=== PATIENT | female | born 1960 | race Caucasian/White ===

== ENCOUNTER 2018-07-14 09:25 | Inpatient (IN) ==
[2018-07-14] MEDS ORDERED: ISOVUE-370 200 ML INFUS..BTL IV ONE ×2 (09:29→10:53)
[2018-07-14] MEDS ORDERED: *HR* Heparin 10,000 UNIT/10 ML VIAL ONE (09:29)
[2018-07-14] MEDS ORDERED: Nitroglycerin 1,000 MCG/10 ML VIAL IV ONE (09:29)
[2018-07-14] MEDS ORDERED: Heparin 1,000 UNITS/500 mL 500 ML ONE (09:29)
[2018-07-14] MEDS ORDERED: 0.9 % Sodium Chloride 1,000 ML ONE ×3 (09:29→13:46)
[2018-07-14] MEDS ORDERED: *HR* FentaNYL (PF) 100 MCG/2 ML VIAL ONE (10:36)
[2018-07-14] MEDS ORDERED: *HR* Midazolam HCl 2 MG/2 ML VIAL ONE (10:37)
[2018-07-14] MEDS ORDERED: *HR* Bivalirudin 250 MG VIAL IVC ONE (10:42)
--- NOTE | 2018-07-14 11:33 | Invasive Diagnostic Lab Proc ---
Name: Kayce Carballo Date of Study: 07/14/2018 Date: 1960 Ht: 62.0in Medical Record#: [id number] Age: 58 Wt: 238.10lb Gender: Female BSA: 2.06 Order #: [id number] BMI: 43.54 Physicians Procedure Physician: Paris Sullivan MD, FACC Referring MD: Referring MD: Staff Name Position Time In Izabel Pacheco RT Scrub 10:32 AM Rafael Conte RN General Engineering Teacher 10:32 AM Javed Denton RN Monitor 10:32 AM Elodia Zamudio RT (R) Monitor 10:37 AM Claudette Barlow RN General Engineering Teacher 10:37 AM Indications Indication STEMI Procedures Performed Procedure PRQ CARD REVASC NJ 1 VSL L HRT ARTERY/VENTRICLE ANGIO PRQ CARD ROSALVA STENT W/ANGIO 1 VSL Pre-Procedure Checklist Informed consent is complete signed and on chart. H&P is on chart. ID band is on and ID verified with patient. Patient NPO for procedure The procedure was described for the patient and questions were answered. Blood Pressure: 162/85 ECG is on chart. Rhythm: NSR Plan of Care Patient will tolerate the procedure without complications. Adequate level of comfort will be maintained. Hemodynamics will remain stable Patient will recover from procedure without complications. Respiratory function will be maintained. Cardiac rhythm will remain stable. Patient temperature will be maintained. Patient and/or family have verbalized understanding of the procedure. Patient Education Chief Complaint/Reason for Test: Cardiac Cath Developmental Category: Adult (18-64 years) Developmentally Appropriate for Age: Yes Learning Barriers: None Education Needs: Procedure Education Method: Verbal Information Taught: Cardiac Cath Educational Evaluation: Able to repeat information Intravenous Access Time IV Size Location DC'd Fluid/Drip Rate Units RN 18g 1 1/" Patent On Arrival Lt Arm 0.9NaCl 50 ml/hr Claudette Barlow RN 22g 1" Patent On Arrival Lt Hand Allergies codeine acetaminophen lisinopril hydrocodone Vital Signs Time BP (mmHg) HR (bpm) O2 Sat. RR (bpm) LOC 10:35 AM 145 / 86 130 98 % 16 10:40 AM 147 / 90 65 100 % 14 10:45 AM 159 / 84 67 97 % 38 10:50 AM 132 / 67 70 95 % 28 10:55 AM 122 / 64 72 98 % 13 11:00 AM 134 / 72 84 98 % 14 11:05 AM 130 / 81 55 98 % 14 11:10 AM 135 / 82 72 98 % 10 Procedural Medications Time Medication Dose Units Method Given By 10:38 AM Oxygen 2 L/min nasal cannula Claudette Barlow RN 10:38 AM Versed 2 mg Intravenous Claudette Barlow RN 10:38 AM Fentanyl 50 mcg Intravenous Claudette Barlow RN 10:39 AM Lidocaine 2% 20 ml Subcutaneous Paris Sullivan MD, FAC 10:44 AM Angiomax 0.75mg/kg bolus: 16.5 ml Intravenous Claudette Barlow RN 10:44 AM Angiomax 1.75mg/kg/hr: 38.5 ml Intravenous Claudette Barlow RN 10:47 AM Nitroglycerin 200 mcg Intracoronary Paris Sullivan MD, FAC 10:50 AM Nitroglycerin 200 mcg Intracoronary Paris Sullivan MD, FACC 11:05 AM Nitroglycerin 200 mcg Intracoronary Paris Sullivan MD, [facility] ASA Classification: Emergent Procedure: ASA score is assumed Irina Score Preprocedure Postprocedure Activity 2- Moves 4 extremities sustained head lift Activity 2- Moves 4 extremities sustained head lift Circulation 2- SBP +/= 20 points of pre-anesthetic level Circulation 2- SBP +/= 20 points of pre-anesthetic level Consciousness 2- Awake and alert oriented x 3 Consciousness 2- Awake and alert oriented x 3 O2 Saturation 2- Able to maintain O2 satruation of 92% on room air O2 Saturation 2- Able to maintain O2 satruation of 92% on room air Respiratory 2- Able to deep breathe and cough well Respiratory 2- Able to deep breathe and cough well Total Score 10 Total Score 10 Contrast Agent: Isovue Diagnostic Contrast: 194 ml Total Contrast: 194 ml Fluoro Dose: 99682 mGy Procedure Log Time Note Enter By 10:10 AM CathStat 10:15 AM asa,brilinta and heparin given at [facility] scoates 10:32 AM Pt arrived to laborer [facility] 2 at 10:32 ejohnson 10:32 AM Heparin turned off ejohnson 10:34 AM [ Start or Stop Vital ] 10:34 AM Vitals capture started with the following parameters, Patient=Adult, Interval=5 min, Initial Mqavoijk=563 mmHg, Deflation Rate=5 mmHg, Cuff placed on Right Arm 10:35 AM Physician arrived 10:35 ejohnson 10:35 AM CY=094 bpm, ARBT=185/86 mmhg, SpO2=98.0 %, Resp=16 B/min 10:35 AM Izabel Pacheco RT Position: Scrub Time in: 10:32 ejohnson 10:35 AM Rafael Conte RN Position: General Engineering Teacher Time in: 10:32 ejohnson 10:35 AM Javed Denton RN Position: Monitor Time in: 10:32 ejohnson 10:36 AM Patient charges- Angio tray pack, Navilyst 3mm J, Pulse Oximetry and ACIST tubing and transducer ejohnson 10:36 AM Recorded ECG: HR=68 Condition=Condition 1 10:37 AM Elodia Zamudio RT (R) Position: Monitor Time in: 10:37 tsites 10:37 AM Claudette Barlow RN Position: General Engineering Teacher Time in: 10:37 tsites 10:37 AM Case Delayed No tsites 10:37 AM Physician arrived 10:37 tsites 10:38 AM Procedure start 10:38 tsites 10:38 AM Time out was performed according to hospital policy. Conscious sedation and anesthesia was achieved (see medication log with in this report above) tsites 10:38 AM Critical cardiac patient with acute NJ was brought emergently to the cardiac laboratory technician for immediate coronary angiography and intervention if clinically indicated. tsites 10:38 AM Clinical Presentation: STEMI or equivalent tsites 10:38 AM Time: 10:38 Oxygen on at 2 L/min per nasal cannula by Claudette Barlow RN tsites 10:38 AM Time: 10:38 Versed 2 mg Intravenous Given by Claudette Barlow RN tsites 10:38 AM Time: 10:38 Fentanyl 50 mcg Intravenous Given by Claudette Barlow RN tsites 10:39 AM Hair removed from procedure site in holding area using clippers. Bilateral groin prepped with Chloraprep by Claudette Barlow RN, then patient was draped. Skin intact. tsites 10:39 AM Time: 10:39 20 ml Lidocaine 2% to right groin Subcutaneous Given by Paris Sullivan MD, [facility] tsites 10:39 AM Pressure channel 1 zeroed. 10:40 AM HR=65 bpm, VQBL=903/90 mmhg, PfL9=330.0 %, Resp=14 B/min 10:40 AM Access obtained by percutaneous puncture. 6Fr 10cm Terumo Bruno sheath placed in right Femoral artery. [id number] tsites 10:40 AM 5Fr FL 4 catheter inserted over the wire [facility] tsites 10:40 AM 0.035 145cm Navilyst 3mmJ wire [id number] tsites 10:41 AM LCA angiography performed in multiple views. tsites 10:41 AM Recorded Pressure: Ao, HR=74, Condition=Condition 1 (Aorta) Ao 205/48/110 10:42 AM Lesion found in Mid Circumflex. Pre Stenosis: 100 Pre HATTIE Flow: 0: No Flow/No perfusion tsites 10:42 AM Circumflex, Obtuse Marginal, Left Posterior Descending, and Left Posterolateral Coronary Arteries with 100 % stenosis. If graft is supplying this area, 0 % stenosis tsites 10:42 AM wire reinserted catheter removed tsites 10:43 AM PCI Status Emergency tsites 10:43 AM PCI lesion in Mid Circumflex. tsites 10:43 AM 6Fr XB LAD 3.5 Avon Bright-Tip guide catheter was used to cannulate the PCI vessel successfully. reused? No tsites 10:43 AM .014 Prowater 182cm guide wire across target lesion- successful. reused? No tsites 10:43 AM Inflation device was opened. tsites 10:44 AM Time: 10:44 Angiomax 0.75mg/kg bolus: 16.5 ml Intravenous Given by Claudette Barlow RN Young pump tsites 10:45 AM Time: 10:44 Angiomax 1.75mg/kg/hr: 38.5 ml Intravenous Given by Claudette Barlow RN Young pump tsites 10:45 AM HR=67 bpm, QYUG=255/84 mmhg, SpO2=97.0 %, Resp=38 B/min 10:45 AM Recorded Pressure: Ao, HR=68, Condition=Condition 1 (Aorta) Ao 169/74/119 10:45 AM 2.5 mm x 12 mm Emerge Monorail balloon across target lesion- successful. reused? No tsites 10:45 AM Balloon inflated @ 10 ken for 20 seconds tsites 10:47 AM Balloon catheter removed intact. tsites 10:47 AM Recorded Pressure: Ao, HR=90, Condition=Condition 1 (Aorta) Ao ?/?/? 10:48 AM Time: 10:47 Nitroglycerin 200 mcg Intracoronary Given by Paris Sullivan MD, [facility] tsites 10:49 AM 3.0mm x 20mm Synergy drug-eluting stent across target lesion- successful Lot #[id number] tsites 10:50 AM Stent deployed @ 12 ken for 30 seconds tsites 10:50 AM Recorded Pressure: Ao, HR=71, Condition=Condition 1 (Aorta) Ao 112/77/92 10:50 AM HR=70 bpm, HOWD=028/67 mmhg, SpO2=95 %, Resp=28 B/min 10:50 AM Stent delivery system removed intact. tsites 10:51 AM Time: 10:50 Nitroglycerin 200 mcg Intracoronary Given by Paris Sullivan MD, [facility] tsites 10:53 AM Guide wire removed intact. tsites 10:53 AM Guide catheter removed intact. tsites 10:53 AM 5Fr FR 4 catheter inserted over the wire [facility] tsites 10:54 AM RCA angiography performed in multiple views. tsites 10:54 AM Recorded Pressure: Ao, HR=70, Condition=Condition 1 (Aorta) Ao 109/79/93 10:55 AM HR=72 bpm, TWCR=381/64 mmhg, SpO2=98 %, Resp=13 B/min 10:56 AM Lesion found in Mid RCA. Pre Stenosis: 80 Pre HATTIE Flow: 3: Complete and Brisk Flow/Perfusion tsites 10:57 AM Pressure channel 1 zero failed. 10:57 AM Pressure channel 1 zeroed. 10:57 AM Recorded Pressure: LV, HR=74, Condition=Condition 1 (Left Ventricle) LV 132/0/21 10:57 AM Recorded Pressure: LV, Ao, HR=74, Condition=Condition 1 (Left Ventricle) LV 101/30/33, (Aorta) Ao 108/71/89 10:57 AM 5Fr Pigtail catheter inserted over the wire [facility] tsites 10:57 AM Catheter crossed the aortic valve and was selectively placed in the left ventricle. Pressures recorded on pullback for left heart catheterization. tsites 10:57 AM Bolus angiogram of left Ventricle complete: 8 ml/sec for a total of 24 mls tsites 10:58 AM wire reinserted catheter removed tsites 10:58 AM 6Fr JR 4 Avon Bright-Tip guide catheter was used to cannulate the PCI vessel successfully. reused? No tsites 10:58 AM .014 Prowater 180cm guide wire across target lesion- successful. reused? No tsites 11:00 AM HR=84 bpm, GGKT=951/72 mmhg, SpO2=98.0 %, Resp=14 B/min 11:00 AM Recorded Pressure: Ao, HR=77, Condition=Condition 1 (Aorta) Ao 106/49/70 11:01 AM 2.5mm x 16mm Synergy drug-eluting stent across target lesion- successful Lot #[id number] tsites 11:03 AM Stent deployed @ 14 ken for 30 seconds tsites 11:04 AM Stent balloon reinflated @ 18 ken for 12 seconds tsites 11:04 AM Recorded Pressure: Ao, HR=66, Condition=Condition 1 (Aorta) Ao 111/35/81 11:04 AM Stent delivery system removed intact. tsites 11:05 AM HR=55 bpm, LDNK=767/81 mmhg, SpO2=98.0 %, Resp=14 B/min 11:05 AM Time: 11:05 Nitroglycerin 200 mcg Intracoronary Given by Paris Sullivan MD, FACC tsites 11:07 AM wire reinserted catheter removed tsites 11:08 AM Bolus angiogram of right Femoral complete: 2 ml/sec for a total of 4 mls tsites 11:09 AM Procedure completed at 11:09 07/14/2018 tsites 11:09 AM Sign out completed: Radiation Dose 968 mGy, 34728 cGy/cm2 Fluoro Time: 8.5 Isovue 370 - 200ml contrast 194 ml given by Paris Sullivan MD, FACC. Complications: None. The patient was discharged out of the laboratory technician in stable condition. Cardiac Rehab Consult needed: YesConfirmed administered medications: Yes tsites 11:10 AM Isovue 370 - 200ml,1 Bottle(s) used. tsites 11:10 AM Sheath left in place to be pulled on floor/holding areaV+Pad tsites 11:10 AM HR=72 bpm, ZAOR=372/82 mmhg, SpO2=98 %, Resp=10 B/min 11:12 AM Estimated Blood Loss: less than 20cc tsites 11:12 AM Did you address HATTIE flow and Dominance? Yes tsites 11:12 AM Coronary Dominance: right tsites 11:12 AM Lesion found in Proximal RCA. Pre Stenosis: 30 Pre HATTIE Flow: tsites 11:13 AM Lesion found in Distal RCA. Pre Stenosis: 40 Pre HATTIE Flow: tsites 11:13 AM Lesion found in Distal LMCA. Pre Stenosis: 20 Pre HATTIE Flow: tsites 11:13 AM Lesion found in Proximal LAD. Pre Stenosis: 50 Pre HATTIE Flow: tsites 11:13 AM Lesion found in Mid LAD. Pre Stenosis: 30 Pre HATTIE Flow: tsites 11:13 AM Lesion found in Proximal Circumflex. Pre Stenosis: 40 Pre HATTIE Flow: tsites 11:14 AM Left Main Coronary Artery with 20% stenosis tsites 11:14 AM Proximal Left Anterior Descending Coronary Artery with 50% stenosis. If graft is supplying this territory, 0 % stenosis. tsites 11:14 AM Mid/Distal Left Anterior Descending Coronary Artery and diagonal branches with 30% stenosis. If graft is supplying this area, 0 % stenosis tsites 11:14 AM Circumflex, Obtuse Marginal, Left Posterior Descending, and Left Posterolateral Coronary Arteries with 100 % stenosis. If graft is supplying this area, 0 % stenosis tsites 11:14 AM Right Coronary, Right Posterior Descending Arteries with Right Posterolateral and Acute Marginal branches with 80 % stenosis. If graft is supplying this area, 0 % stenosis tsites 11:14 AM Post ECG NSR tsites 11:16 AM Post Blood Pressure 135/82 tsites 11:16 AM 11:16 Post Pulses Bilateral DP & PT 2+ tsites 11:16 AM Information taught Cardiac Cath and PCI tsites 11:17 AM Education needs Procedure, Plan of Care, and Responsibilities of Patient in Care tsites 11:17 AM Learning barriers :None tsites 11:17 AM Education Methods Verbal tsites 11:17 AM Education evaluation Able to repeat information tsites 11:17 AM Site status No bleeding/hematoma - Rt Groin as reported by Izabel Pacheco RT at 11:17 tsites 11:17 AM Opsite applied tsites 11:17 AM angiomax dc'd tsites 11:18 AM Report given to claudia CRANE Pt taken to ICU Room #10. 11:17 tsites 11:18 AM Plavix, Effient or Brilinta given Yes [facility] tsites 11:18 AM Delay to floor No tsites 11:18 AM Patient out of room: 11:18 tsites 11:18 AM Family placed in consult room. tsites Complications Complication None Hemodynamics Pressures Site Systolic/A Wave Diastolic/V Wave Mean AO 205 48 110 AO 169 74 119 AO AO 112 77 92 AO 109 79 93 LV 132 0 21 LV 101 30 33 AO 108 71 89 AO 106 49 70 AO 111 35 81 Post Procedure Information Blood Pressure: 135/82 mmHg Rhythm: NSR Post procedural instructions were given Closure Device Time Device Success/Fail 07/14/2018 11:20:00 AM Manual Compression Successful Site Checks Time Location Status Staff Sheath In? Note 11:17 AM Rt Groin No bleeding/hematoma Izabel Pacheco RT Pulses Time Site Pre-Procedure Post-Procedure Note Bilateral DP & PT 2+ 11:16:00 AM Bilateral DP & PT 2+ Updated by Elodia Zamudio RT (R) on 07/14/2018 11:23:54 AM Elodia Zamudio RT electronically signed on 07/14/2018 11:24:31 AM with status of Final
[2018-07-14] MEDS ORDERED: Nitroglycerin 0.4 MG TAB.SUBL SL PRN (11:43)
--- NOTE | 2018-07-14 12:05 | Cardiology History & Physical ---
Date of Encounter: 07/14/18 Time of Encounter: 11:00 Assessment and Plan (1) ST elevation myocardial infarction (STEMI) Current Visit: No Status: Acute Acute CA from [place] ED. She underwent emergent LHC and received PCI to her mLCx artery (culprit) and RCA. There was mild to moderate disease remaining in the LAD. She is now pain free. Asa, plavix, statin, and bb. Check TTE. Serial EKG. Reports inability to obtain meds due to cost. cattle alley worker consulted. Qualifiers: Involved coronary artery: left circumflex coronary artery Qualified Code(s) : I21.21 - ST elevation (STEMI) myocardial infarction involving left circumflex coronary artery (2) HTN (hypertension) Current Visit: No Status: Chronic Restart home meds. Qualifiers: Hypertension type: essential hypertension Qualified Code(s): I10 - Essential (primary) hypertension (3) HLD (hyperlipidemia) Current Visit: No Status: Chronic The assessment and plan as outlined above was discussed with the patient and/or family members who expressed understanding and agreement. All questions were answered. Continue statin. Qualifiers: Hyperlipidemia type: pure hypercholesterolemia Qualified Code(s): E78.00 - Pure hypercholesterolemia, unspecified; E78.0 - Pure hypercholesterolemia (4) Celiac disease Current Visit: No Status: Chronic The assessment and plan as outlined above was discussed with the patient and/or family members who expressed understanding and agreement. All questions were answered. H/o celiac disease. Reports recent inability to take meds and broke out in blisters. She was given steroid shot recently and is back on medications. cattle alley worker consult for financial assistance. (5) Diabetes 1.5, managed as type 2 Current Visit: No Status: Chronic The assessment and plan as outlined above was discussed with the patient and/or family members who expressed understanding and agreement. All questions were answered. Restart home meds. WIll add SSI if indicated. (6) Obesity Current Visit: Yes Status: Acute The assessment and plan as outlined above was discussed with the patient and/or family members who expressed understanding and agreement. All questions were answered. Qualifiers: Obesity type: unspecified obesity type Serious obesity comorbidity presence : with serious comorbidity Body mass index: BMI 40.0-44.9 Qualified Code(s) : E66.01 - Morbid (severe) obesity due to excess calories; Z68.41 - Body mass index (BMI) 40.0-44.9, adult History of Present Illness Chief complaint: chest pain HPI: Ms. Carballo is a 58 year old female with past medical history of HTN, HLD, DM, and celiac disease who presented to [facility] ED with the c/o severe chest pain starting at 0630 this morning. C/o intermittent chest discomfort, SOB, diaphoresis, and nausea for two days. Symptoms increased with activity. This morning the pain woke her from her sleep. While in the ED her initial EKG showed no significant ST changes. She had recurrent chest pain and re-peat EKG showed inferior and anteriolateral ST elevation. She was transfered to [facility] for emergent LHC. Past Med Surg Social Fam HX - Past Medical History Medical history: hyperlipidemia, hypertension, other (celiac disease, elevated BMI, borderline DM) Psychiatric history: no psych history - Past Surgical History Surgical History: cholecystectomy - Social History Smoking Status: Current every day smoker Smokeless Tobacco Status: No Alcohol use: none Drug use: none Medications and Allergies Aspirin Enteric Coated [Aspirin EC] 81 mg PO DAILY 06/14/15 [History] Fenofibrate [Tricor] 54 mg PO DAILY 06/14/15 [History] HydrOXYzine 25 mg PO TID 06/14/15 [History] Metoprolol [Lopressor] 50 mg PO BID 06/14/15 [History] Omeprazole [Prilosec] 40 mg PO DAILY 06/14/15 [History] hydroCHLOROthiazide [Hydrochlorothiazide] 50 mg PO DAILY 06/14/15 [History] Dapsone 100 mg PO DAILY 07/14/18 [History] FLUoxetine HCl [PROzac] 20 mg PO DAILY 07/14/18 [History] 3 Allergy/AdvReac Type Severity Reaction Status Date / Time acetaminophen Allergy Vomiting Verified 07/14/18 08:42 codeine Allergy Vomiting Verified 07/14/18 08:42 hydrocodone Allergy Anxiety Verified 07/14/18 08:42 lisinopril Allergy Cough Verified 07/14/18 08:42 All Systems Review: The remainder of the systems were reviewed and are negative Physical Examination Vital Signs, Last 4 Hours Temp Pulse Resp BP Pulse Ox 07/14/18 11:44 73 97 137/85 07/14/18 11:28 97.8 F 76 13 140/81 97 General: Conversant, No Apparent Distress HEENT: Atraumatic, Normocephaly, Mucus Membranes Moist Neck: No JVD, Normal carotid pulses Cardiac: Reg Rate and Rhythm, Normal S1 and S2, No Murmur Lungs: Normal Breath Sounds, Other (Respirations easy, mild wheezing noted ) Neuro: Alert and responsive, No focal deficits noted Abdomen: Soft, Non-Tender Skin: Other (Multiple scabbed areas on arms noted) Musculoskeletal: No Chest Wall Tenderness Extremities: No Clubbing, No Cyanosis, No Edema, Normal Pulses Results - Imaging and Cardiology Cardiac cath: report reviewed - EKG Interpretation EKG results cardiology: personally reviewed - VTE Reasons for not Prescribing Prophylaxis: Not indicated-Anticoagulated or INR therapeutic
[2018-07-14 12:34] LABS: Estimated Average Glucose 100 mg/dl; Hemoglobin A1C 5.1 %
[2018-07-14] MEDS ORDERED: *HR* Atropine Sulfate 1 MG/10 ML SYRINGE ONE (13:46)
[2018-07-14] MEDS: Nicotine 21 MG PATCH.TD24 TD SCH (19:56)
[2018-07-14] MEDS ORDERED: Perflutren Lipid Microsphere 1.3 ML in 0.9 % Sodium Chloride 8.7 ML IVP ONE (21:11)
[2018-07-15 04:14] LABS: Basophils % 0.4 %; Eosinophils # 0.2 K/mcL (0.0-0.6); Eosinophils % 1.8 %; Hematocrit 37.8 % (35.3-44.9); Hemoglobin 11.9 g/dL (11.5-15.4); Immature Granulocytes % 0.8 % (0-4); Lymphocytes # 3.1 K/mcL (0.6-4.6); Mean Corpuscular HGB Conc 31.5 g/dL (31.6-35.5); Mean Corpuscular Hemoglobin 28.3 pg (28.0-33.3); Mean Corpuscular Volume 89.8 fL (83.0-100.0); Mean Platelet Volume 10.8 fL (9.4-12.4); Monocytes # 0.9 K/mcL (0.0-1.3); Monocytes % 9.3 %; Neutrophils # 4.9 K/mcL (1.6-8.9); Platelet Count 196 K/mcL (140-400); Red Blood Count 4.21 M/mcL (3.82-4.97); Red Cell Distribution Width 14.3 % (11.5-14.5); Segmented Neutrophils % 53.7 %
[2018-07-15 04:36] LABS: BUN/Creatinine Ratio 28 (6-26); Blood Urea Nitrogen 15 mg/dL (6-20); Calcium 9.2 mg/dL (8.6-10.3); Carbon Dioxide 26 mEq/L (23-29); Chloride 106 mEq/L (98-107); Chol/HDL Ratio 5.8 (0-4.9); Cholesterol 161 mg/dL (< 200); Glucose 120 mg/dL (70-105); HDL Cholesterol 28 mg/dL (40-59); LDL Cholesterol,Calculated 96 mg/dL (0-99); Osmolality,Calculated 294 (280-300); Potassium 4.2 mEq/L (3.5-5.1); Sodium 141 mEq/L (136-145); Triglycerides 186 mg/dL (< 150); eGFR For Non-African Americans > 60 (> 60)
[2018-07-15 04:37] LABS: Troponin I 17.78 ng/mL (< 0.04)
[2018-07-15] MEDS ORDERED: Aspirin 81 MG TAB.CHEW PO SCH (09:00)
--- NOTE | 2018-07-15 09:21 | Electrocardiograph Report ---
Echo with Imaging Enhancement Agent Name: Kayce Carballo Date of Study: 07/14/2018 Date: 1960 Ht: 62.0 in Medical Record#: [id number] Age: 58 Wt: 229.0 lb Gender: Female BSA: 2.02 Order #: [id number] Location: [facility] Room #: ICU10 Reading Physician:Merrill Ch DO, [facility], YUNIOR MATTSON Ordering Physician:Paris Sullivan MD, [facility] Technical Services Manager: Olga Lidia Mendoza Indications: Acute Coronary Syndrome Impressions: LVEF 55%. Normal LV chamber size, wall thickness and overall function. Mild segmental left ventricular systolic dysfunction. Mild left ventricular diastolic dysfunction. Normal right ventricular structure and function. Unable to estimate RVSP due to lack of TR jet. No significant valvular dysfunction. Left Ventricular Wall Motion: Rest Echo Findings The mid inferior lateral and basal inferior lateral de jesus were hypokinetic. All other wall segments showed normal motion. Findings: Study Quality * Technically adequate exam. ECG Findings * Normal sinus rhythm. Left Ventricle * LVEF 55%. * Normal LV chamber size, wall thickness and overall function. * Mild segmental left ventricular systolic dysfunction. * Mild left ventricular diastolic dysfunction. Right Ventricle * Normal right ventricular structure and function. Left Atrium * Mildly dilated left atrium. Right Atrium * Normal right atrial size. Aortic Valve * Aortic valve not well visualized. * No aortic regurgitation. * No aortic stenosis. Mitral Valve * Normal mitral valve structure and function. * No mitral stenosis. * No mitral regurgitation. Tricuspid Valve * Normal tricuspid valve structure and function. * No tricuspid regurgitation. * Unable to estimate RVSP due to lack of TR jet. Pulmonic Valve * Normal pulmonic valve structure and function. * Trace pulmonic regurgitation. Pericardium * The pericardium appears normal. IVC * Normal IVC dimensions and inspiratory collapse. Pulmonary Artery * Normal visualized portions of the main pulmonary artery. History Hypertension Hypercholesteremia Contrast: Definity 1.3 ml in 8.7 ml of saline 3 ml. Measurements: BP: 128/ 65 2D Normal Values RVIDd: 2.73 cm <2.7 cm IVSd: 1.09 cm 0.6 - 1.0 cm LVIDd: 5.00 cm 3.7 - 5.6 cm LVPWd: 1.05 cm 0.6 - 1.1 cm LVIDs: 3.29 cm 1.5 - 3.6 cm AO: 2.00 cm < 4.0 cm LA: 3.60 cm 2.0 - 4.0cm %FS: 34.20 cm >25 % LVOT Diam: 2.00 cm LA volume: 52.7 Mitral Valve Pressure Time:52.00 msec Valve Area:4.23 cm2 Peak E:1.01 m/sec Peak A:.95 m/sec E/A Ratio:1.1 Peak E' Lat Herman:7.72 cm/s Peak E' Med Herman:7.07 cm/s E/E' Lat Ratio:13.1 E/E' Med Ratio:14.3 LVOT Peak Herman:1.17 m/sec Mean Herman:.73 m/sec Peak Grad:5.00 mmHg Mean Grad:2.00 mmHg Updated by Merrill Ch DO, [place], SRINIVASAN, YUNIOR on 07/15/2018 9:13:58 AM electronically signed on 07/15/2018 9:14:49 AM with status of Final Wall Motion Dixon: 1=Normal, 2=Hypokinesis, 3=Akinesis, 4=Dyskinesis, 5=Aneurysmal, 6=Hyperkinetic, X=Not Visualized (Blank)=Missing
[2018-07-15] MEDS: Nicotine 21 MG PATCH.TD24 TD SCH (09:34)
--- NOTE | 2018-07-15 10:58 | Cardiology Progress Note ---
Date of Encounter: 07/15/18 Time of Encounter: 10:50 Assessment and Plan (1) ST elevation myocardial infarction (STEMI) Current Visit: No Status: Acute Acute [place] from [place] [facility]. She underwent emergent LHC and received PCI with ROSALVA to her mLCx artery (culprit) and 80% stenosis in RCA. There was 40-50% stenosis remaining in the LAD. She is now pain free. Asa, plavix, statin, and bb. Importance of DAPT uninterrupted for min one year reviewed and she voiced understanding. TTE pending. Serial EKG shows improvement. Reports inability to obtain meds due to cost. mechanical maintenance worker consulted. Step down to floor today. Qualifiers: Involved coronary artery: left circumflex coronary artery Qualified Code(s) : I21.21 - ST elevation (STEMI) myocardial infarction involving left circumflex coronary artery (2) HTN (hypertension) Current Visit: No Status: Chronic B/p acceptable. Qualifiers: Hypertension type: essential hypertension Qualified Code(s): I10 - Essential (primary) hypertension (3) HLD (hyperlipidemia) Current Visit: No Status: Chronic The assessment and plan as outlined above was discussed with the patient and/or family members who expressed understanding and agreement. All questions were answered. Continue statin. Qualifiers: Hyperlipidemia type: pure hypercholesterolemia Qualified Code(s): E78.00 - Pure hypercholesterolemia, unspecified; E78.0 - Pure hypercholesterolemia (4) Celiac disease Current Visit: No Status: Chronic The assessment and plan as outlined above was discussed with the patient and/or family members who expressed understanding and agreement. All questions were answered. H/o celiac disease. Reports recent inability to take meds and broke out in blisters. She was given steroid shot recently and is back on medications. mechanical maintenance worker consult for financial assistance. (5) Diabetes 1.5, managed as type 2 Current Visit: No Status: Chronic The assessment and plan as outlined above was discussed with the patient and/or family members who expressed understanding and agreement. All questions were answered. History of borderline DM. Not on medication currently. Continue to monitor. (6) Obesity Current Visit: Yes Status: Acute The assessment and plan as outlined above was discussed with the patient and/or family members who expressed understanding and agreement. All questions were answered. Healthy heart diet and exercise reviewed. Qualifiers: Obesity type: unspecified obesity type Serious obesity comorbidity presence : with serious comorbidity Body mass index: BMI 40.0-44.9 Qualified Code(s) : E66.01 - Morbid (severe) obesity due to excess calories; Z68.41 - Body mass index (BMI) 40.0-44.9, adult Discussion w patient/family: The assessment and plan as outlined above was discussed with the patient and/or family members who expressed understanding and agreement. All questions were answered. Thank you for involving us in the care of your patient. Please call with any questions. Subjective Principal diagnosis: STEMI Interval history: No events overnight. Denies chest pain. Objective Vital Signs, Last 4 Hours Temp Pulse Resp BP Pulse Ox 07/15/18 10:00 69 14 128/72 97 07/15/18 09:00 72 18 97 07/15/18 08:10 97.7 F 07/15/18 08:00 78 18 121/71 97 07/15/18 07:00 70 18 97 General: Conversant, No Apparent Distress HEENT: Atraumatic, Normocephaly, Mucus Membranes Moist Neck: No JVD, Normal carotid pulses Cardiac: Reg Rate and Rhythm, Normal S1 and S2, No Murmur Lungs: Normal Breath Sounds, No Wheeze, Rales, Rhonchi Neuro: Alert and responsive, No focal deficits noted Abdomen: Soft, Non-Tender Skin: No rashes noted on visualized skin Musculoskeletal: No Chest Wall Tenderness Extremities: No Clubbing, No Cyanosis, No Edema, Normal Pulses, Other (Right femoral access soft with no hematoma. Mild ecchymosis) Results 07/15/18 03:56 07/15/18 03:56 Lab Results 07/14/18 07/15/18 07/15/18 12:00 03:56 03:56 WBC 9.1 Hgb 11.9 Hct 37.8 Plt Count 196 Sodium 141 Potassium 4.2 Chloride 106 Carbon Dioxide 26 BUN 15 Creatinine 0.53 L Glucose 120 H Calcium 9.2 Troponin I 13.41 H* 17.78 H* - Imaging and Cardiology Echo: pending - EKG Interpretation EKG results cardiology: personally reviewed - VTE Reasons for not Prescribing Prophylaxis: Not indicated-Anticoagulated or INR therapeutic Consult Discharge Plan - Plan Referrals: Angie Mobley, WORK ORDER CLERK [Primary Care Provider] -
[2018-07-15] MEDS ORDERED: Perflutren Lipid Microsphere 1.3 ML in 0.9 % Sodium Chloride 8.7 ML IVP ONE (12:51)
[2018-07-15] MEDS ORDERED: Nitroglycerin 0.4 MG TAB.SUBL SL PRN (12:51)
[2018-07-16 00:29] VITALS: BP 105/51
[2018-07-16] MEDS ORDERED: Aspirin 81 MG TAB.CHEW PO SCH (09:00)
[2018-07-16] MEDS ORDERED: Nicotine 21 MG PATCH.TD24 TD SCH (09:00)
--- NOTE | 2018-07-16 13:56 | Discharge Summary ---
- NOTES TO OUTPATIENT PROVIDER Notes to Outpatient Provider: Admitted with acute STEMI Orders not resulted at time of discharge: Pending orders 07/15/18 07:00 ECG 12 lead ECG [ECG] Routine Date of Encounter: 07/16/18 Time of Encounter: 13:54 - Discharge Diagnosis (1) ST elevation myocardial infarction (STEMI) Priority: Primary Status: Acute Comments: Admitted with acute STEMI. Qualifiers: Involved coronary artery: left circumflex coronary artery Qualified Code(s): I21.21 - ST elevation (STEMI) myocardial infarction involving left circumflex coronary artery (2) HTN (hypertension) Priority: Secondary Status: Chronic Comments: Known HTN. BP controlled. Qualifiers: Hypertension type: essential hypertension Qualified Code(s): I10 - Essential (primary) hypertension (3) HLD (hyperlipidemia) Priority: Secondary Status: Chronic Comments: Known HLD. On statin. Qualifiers: Hyperlipidemia type: pure hypercholesterolemia Qualified Code(s): E78.00 - Pure hypercholesterolemia, unspecified; E78.0 - Pure hypercholesterolemia (4) Celiac disease Priority: Secondary Status: Chronic Comments: Known celiac disease. (5) Diabetes 1.5, managed as type 2 Priority: Secondary Status: Chronic (6) Obesity Priority: Secondary Status: Chronic Comments: Risk factor modification stressed. Qualifiers: Obesity type: unspecified obesity type Serious obesity comorbidity presence: with serious comorbidity Body mass index: BMI 40.0-44.9 Qualified Code(s): E66.01 - Morbid (severe) obesity due to excess calories; Z68.41 - Body mass index (BMI) 40.0-44.9, adult - Hospital Course Hospital course: Ms. Carballo is a 58 year old female who was admitted to [facility] with acute STEMI. Patient was taken emergently to [facility] with PCI to circumflex (culprit) and RCA. Has remaining mild CAD. On asa, plavix, statin, BB. Educated on dual anti- platelet therapy uninterrupted for at least one year, states understanding. TTE with LVEF 55%, mild segmentalLV systolic dysfunction. Right groin access site with mild ecchymosis, no hematoma. Right groin access site management education reviewed with pateint. Patient is being prepped for discharge home today in stable condition. All questions answered. Patient will follow with [facility], follow up set. - Time Spent with Patient Total time spent providing and/or coordinating discharge services: Less than 30 minutes - Discharge Medications Prescriptions: Nitroglycerin 0.4 mg SL Q5MIN PRN #15 tab.subl PRN Reason: Chest Pain Atorvastatin [Lipitor] 80 mg PO HS #60 tablet Clopidogrel [Plavix] 75 mg PO DAILY #30 tablet Losartan [Cozaar] 25 mg PO DAILY #30 tablet Metoprolol [Lopressor] 25 mg PO BID #60 tablet Home Medications: Aspirin Enteric Coated [Aspirin EC] 81 mg PO DAILY 06/14/15 [History] Dapsone 25 mg PO DAILY 07/14/18 [History] Dapsone 100 mg PO DAILY 07/14/18 [History] Omeprazole [PriLOSEC] 40 mg PO DAILY 07/14/18 [History] Atorvastatin [Lipitor] 80 mg PO HS #60 tablet 07/16/18 [Rx] Clopidogrel [Plavix] 75 mg PO DAILY #30 tablet 07/16/18 [Rx] Losartan [Cozaar] 25 mg PO DAILY #30 tablet 07/16/18 [Rx] Metoprolol [Lopressor] 25 mg PO BID #60 tablet 07/16/18 [Rx] Nitroglycerin 0.4 mg SL Q5MIN PRN #15 tab.subl 07/16/18 [Rx] Allergies/Adverse Reactions: Allergy/AdvReac Type Severity Reaction Status Date / Time acetaminophen Allergy Vomiting Verified 07/14/18 18:33 codeine Allergy Vomiting Verified 07/14/18 18:33 hydrocodone Allergy Anxiety Verified 07/14/18 18:33 lisinopril Allergy Cough Verified 07/14/18 18:33 Date of admission: 07/14/18 11:29 Primary care physician: Angie Mobley CNP Consults: 07/14/18 11:44 Consult to Cardiac Rehabilitation-Phase1 [CONS] Routine Comment: Reason for Consult: AMI Call Completed: Yes Consult to Nurse Navigator [CONS] Routine Comment: 07/14/18 16:10 Consult to Radial Drill Operator For Plastic [CONS] Routine Reason for SW Consult: financial concern, cannot afford medications. Discharging clinician: Love Contreras Anticipated date of discharge: 07/16/18 Physical Examination Vital Signs Temperature 97.8 F 07/14/18 11:28 Pulse Rate 76 07/14/18 11:28 Respiratory Rate 13 07/14/18 11:28 Blood Pressure 140/81 07/14/18 11:28 O2 Sat by Pulse Oximetry 97 07/14/18 11:28 Temperature 97.6 F 07/16/18 00:26 Pulse Rate 62 07/16/18 00:26 Respiratory Rate 15 07/16/18 00:26 Blood Pressure 105/51 07/16/18 00:26 O2 Sat by Pulse Oximetry 96 07/16/18 00:26 General: Conversant, No Apparent Distress HEENT: Atraumatic, Normocephaly, Mucus Membranes Moist Neck: No JVD, Normal carotid pulses Cardiac: Reg Rate and Rhythm, Normal S1 and S2, No Murmur Lungs: Normal Breath Sounds, No Wheeze, Rales, Rhonchi Neuro: Alert and responsive, No focal deficits noted Abdomen: Soft, Non-Tender Skin: No rashes noted on visualized skin, Other (Right groin access site with mild ecchymosis, no hematoma. ) Musculoskeletal: No Chest Wall Tenderness Extremities: No Clubbing, No Cyanosis, No Edema, Normal Pulses - Patient Status Disposition: Home, Self-Care Condition: Good Functional capacity at discharge: independent ambulation Overall status at discharge: patient is progressing back to baseline - Discharge Instructions Follow Up With: Angie Mobley MONUMENT CARVER [Primary Care Provider] - Additional Instructions: RISK FACTORS: STOP SMOKING: If you smoke, STOP. Smoking or tobacco use significantly increases your risk of heart disease because nicotine causes the arteries to narrow or constrict. It also causes fats to stick to the artery. Your chances of having a heart attack are greatly increased if you continue to smoke. For more information, call the education line for smoking cessation 5-812-VLBMDGY EAT A LOW FAT/CHOLESTEROL/SODIUM DIET: This diet may help reduce your chances of having a heart attack. LIFTING: Avoid lifting anything more than 10 pounds for 5-7 days Prior to straining, laughing, sneezing and/or coughing, apply manual pressure directly over insertion site. ACTIVITY: You may walk or climb stairs as tolerated You can resume sexual activity as tolerated In general, you are encouraged to engage in a minimum of 30 minutes or more of moderate intensity physical activity, such as brisk walking, daily or at least 3-4 times weekly BATHING Do not submerge the site into water (bath tub, hot tub, swimming pool) for 1 week. This can be a source for infection into the blood stream. You may shower after 24 hours SITE CARE: After 24 hours, you may remove the dressing and leave the site open to air. Keep the site clean and dry. Clean gently and pat dry. You can expect bruising and tenderness that gradually resolve within a week or two. Return to work as instructed per your physician Resume driving as instructed per physician Keep all scheduled follow up appointments Resume medications as instructed IMPORTANT: If prescribed a Platelet Aggregation Inhibitor such as, Plavix, Brilinta or Effient: Duration of therapy is minimum one year These medications are often used in combination with Aspirin in prevention of future heart attacks Never discontinue unless consult with your [employer] STROKE (CVA) Risk factors for a stroke are: Age, cigarette smoking, diabetes, excessive alcohol consumption, family history, high blood pressure, overweight, physical inactivity, prior stroke, heart attack, diagnosis of carotid artery stenosis or other artery disease. Warning signs: Sudden numbness or weakness of the face, arm or leg; especially on one side of the body, sudden confusion, trouble speaking or understanding, sudden trouble seeing in one or both eyes, sudden trouble walking, dizziness, loss of balance or coordination, sudden severe headache with no cause. Call 911 or go to the Emergency Room. CONGESTIVE HEART FAILURE: If you have been diagnosed with Congestive Heart Failure (CHF) and your symptoms return, make an appointment with your physician Weigh yourself daily. Notify your physician if you have a weight gain of two or more pounds in one day or five or more pounds in one week. If you experience any difficulty breathing, please call 911 BLEEDING: Although the risk of bleeding is minimal, it can happen. If you have any bleeding from the site, apply firm pressure above the puncture site for 10-15 minutes. If the bleeding does not stop, continue manual pressure and call 911 Contact your physician if: You develop a fever greater than 101 degrees Fahrenheit Your site becomes reddened or has any drainage You have an increase in pain or burning at the site or if a large knot forms at the site. If you experience chest pain, shortness of breath, dizziness, or extreme tiredness, stop the activity and rest. Please notify your physicians office if you experience any of these symptoms and they are not relieved by rest please call 911! - Diet and Activity Activity: as per physical therapy, increase activity as tolerated (Follow restrictions as above. ) Diet: diabetic diet, low fat, low cholesterol, low salt diet - VTE Reasons for not Prescribing Prophylaxis: Not indicated-Anticoagulated or INR therapeutic
[2018-07-16] MEDS ORDERED: Aspirin 81 MG TAB.CHEW PO ONE (15:55)
[2018-07-16] MEDS ORDERED: Nicotine 21 MG PATCH.TD24 TD ONE (15:55)
--- NOTE | 2018-07-16 16:06 | Electrocardiograph Report ---
[place] [id number] Test Date: 2018-07-14 Pat Name: Kayce Carballo Department: 112 Room: 2NE18 Gender: F Semiconductor Equipment Technician: : 1960 Requested By: Paris Sullivan Order Number: [id number] Reading MD: Melani Alcantara Measurements Intervals [place] Rate: 61 P: 54 [place]: 154 QRS: 36 QRSD: 89 T: 33 QT: 391 QTc: 394 Interpretive Statements SINUS RHYTHM NONSPECIFIC ST & T-WAVE ABNORMALITY Electronically Signed On 07-16-2018 16:04:49 EDT by Melani Alcantara
--- NOTE | 2018-07-16 16:06 | Electrocardiograph Report ---
[place] [id number] Test Date: 2018-07-14 Pat Name: Kayce Carballo Department: 112 Room: 2NE18 Gender: F Vegetables Cook: : 1960 Requested By: Paris Sullivan Order Number: [id number] Reading MD: Melani Alcantara Measurements Intervals [place] Rate: 66 P: 64 [place]: 132 QRS: 43 QRSD: 78 T: 33 QT: 374 QTc: 387 Interpretive Statements SINUS RHYTHM NONSPECIFIC ST & T-WAVE ABNORMALITY Electronically Signed On 07-16-2018 16:04:43 EDT by Melani Alcantara
== END 2018-07-16 15:56 | disposition home or self-care (01) | DRG 174 ==
LOC: ICNU 11:29 → 2NENU 07-15 17:35
PROVIDERS: ADMIT Internal Medicine Interventional Cardiology; ATTEND Internal Medicine Interventional Cardiology